=== PATIENT | female | born 1970 | race Asian ===

== ENCOUNTER 2018-10-24 06:35 | Emergency (ER) | payer OTHER ==
[2018-10-24] MEDS ORDERED: KETOROLAC 60 MG/2 ML VIAL IM STA (07:42)
[2018-10-24] MEDS ORDERED: DEXAMETHASONE 10 MG/ML VIAL PO STA (07:42)
--- NOTE | 2018-10-24 08:06 | ED Physician Documentation ---
PD HPI BACK PAIN - Stated complaint Stated Complaint: COUGH/BACK PAIN - Chief complaint Chief Complaint: Resp - History obtained from History obtained from: Patient, Family () - History of Present Illness Timing - onset: Last night Timing - details: Still present Location: Lower Quality: Pain Worsened by: Movement Contributing factors: Other (cough) Similar symptoms before: No diagnosis (History of recurrent low back pain, but not this bad before.) - Treatment prior to arrival Treatment prior to arrival: Naprosyn last night. - Additional information Additional information: The patient is a 48-year-old female who presents with low back pain that started last night when sitting up in bed coughing. It was severe initially, and continues this morning. She denies associated fever, urinary incontinence, numbness or weakness. She has had cough for nearly a week, with associated sore throat. She denies sputum production or shortness of breath. She denies fever. She took Naprosyn last night with temporary improvement of her symptoms. She has a past history of low back pain associated with exercise. It is never been this bad before. Review of Systems Constitutional: denies: Fever Nose: reports: Congestion Throat: reports: Sore throat Cardiac: denies: Chest pain / pressure Respiratory: reports: Cough. denies: Dyspnea GI: denies: Abdominal Pain, Nausea, Vomiting : denies: Dysuria, Incontinent Skin: denies: Rash Musculoskeletal: reports: Back pain. 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 - Past Surgical History Past Surgical History: No - Present Medications Home Medications: Ambulatory Orders Medication Instructions Recorded Confirmed Benzonatate [Tessalon Perle] 100 - 200 mg PO TID PRN #30 capsule 10/24/18 Hydrocodone/Acetaminophen 1 - 2 each PO Q6H PRN #14 tablet 10/24/18 [Hydrocodon-Acetaminophen 5-325] - Allergies Allergies/Adverse Reactions: Allergies Allergy/AdvReac Type Severity Reaction Status Date / Time amoxicillin Allergy Hives Verified 10/24/18 06:46 sulfamethoxazole Allergy Hives Verified 10/24/18 06:46 [From ] trimethoprim [From ] Allergy Hives Verified 10/24/18 06:46 - Social History Does the pt smoke?: No Smoking Status: Never smoker Does the pt drink ETOH?: No Does the pt have substance abuse?: No - Immunizations Immunizations are current?: Yes - POLST Patient has POLST: No PD ED PE NORMAL - Vitals Vital signs reviewed: Yes (normal) - General General: Alert and oriented X 3, Well developed/nourished - HEENT HEENT: Atraumatic, Moist mucous membranes, Pharynx benign - Neck Neck: Supple, no meningeal sign, No adenopathy, No JVD - Cardiac Cardiac: RRR, No murmur - Respiratory Respiratory: No respiratory distress, Clear bilaterally - Abdomen Abdomen: Soft, Non tender - Back Back: No CVA TTP, No spinal TTP, Other (No back tenderness to palpation.) - Derm Derm: No rash - Extremities Extremities: No edema, No calf tenderness / cord, Other (Straight leg raise is positive on the right at 25 degrees elevation.) - Neuro Neuro: Alert and oriented X 3, No motor deficit, No sensory deficit, Other (Deep tendon reflexes are 2+ and equal bilaterally at the patellar and Achilles tendons.) Results - Vitals Vitals: Oxygen O2 Source Room air PD MEDICAL DECISION MAKING - ED course Complexity details: reviewed old records, reviewed results, re-evaluated patient, considered differential, d/w patient ED course: The patient's presentation is significant for acute exacerbation of recurrent low back pain, with upper respiratory symptoms are most consistent with viral bronchitis. Her pain is likely due to lumbar strain, but the possibility of disc herniation remains a potential cause. Her presentation does not suggest epidural abscess, cauda equina syndrome, or spinal stenosis. Treatment in the emergency department included administration of ketorolac 60 mg IM and dexamethasone 10 mg orally. She reports slight improvement of her symptoms after the above treatment. She is being discharged with prescription for Tessalon to help with her,, and Vicodin, 14 tablets, to help ease her pain. I discussed with her and her the expected course of illness, symptomatic treatment and outpatient follow-up, as well as potentially worrisome signs or symptoms that should prompt reevaluation in the emergency department. Departure - Departure Disposition: 01 Home, Self Care Clinical Impression: Viral bronchitis Low back pain Qualifiers: Chronicity: acute Back pain laterality: right Sciatica presence: without sciatica Qualified Code(s): M54.5 - Low back pain Condition: Stable Instructions: ED Low Back Pain Injury, ED Upper Resp Infec No Abx Tx Follow-Up: PINKY AVILA [Primary Care Provider] - Prescriptions: Benzonatate [Tessalon Perle] 100 - 200 mg PO TID PRN #30 capsule PRN Reason: Cough Hydrocodone/Acetaminophen [Hydrocodon-Acetaminophen 5-325] 1 - 2 each PO Q6H PRN #14 tablet PRN Reason: pain Comments: Apply ice pack to your lower back intermittently for the next 3 days. Continue to use Naprosyn twice daily for its anti-inflammatory effect. You can use Vicodin as prescribed if needed for pain. You can use Tessalon as prescribed if needed for cough. Let pain be your guide to activity level. Follow-up with your primary physician within 2 weeks. Call to schedule an appointment. Return to the emergency department if you develop increasing back pain, urinary incontinence, numbness or weakness, or otherwise worsening symptoms. Discharge Date/Time: 10/24/18 08:36
[2018-10-24 08:35] VITALS: BP 120/75
== END 2018-10-24 08:36 | disposition home or self-care (01) ==
LOC: ED 06:35
DX: J20.8 Acute bronchitis due to other specified organisms (principal); M54.5 Low back pain
CPT/HCPCS: 96372; 99283

== ENCOUNTER 2020-01-02 09:39 | Outpatient (CLI) | payer OTHER ==
[2020-01-02 12:53] LABS: BASOPHILS # (AUTO) 0.1 10^3/uL (0.0-0.1); EOSINOPHILS # (AUTO) 0.2 10^3/uL (0.0-0.7); EOSINOPHILS % (AUTO) 3.1 %; HGB - HEMOGLOBIN 13.4 g/dL (12.0-16.0); MEAN CORPUSCULAR HGB CONC 33.5 g/dL (32.0-36.0); MEAN CORPUSCULAR VOLUME 92.6 fL (81.0-99.0); MEAN PLATELET VOLUME 9.5 fL (7.9-10.8); MONOCYTES # (AUTO) 0.6 10^3/uL (0.0-1.0); NEUTROPHILS % (AUTO) 57.6 %; PLT - PLATELET COUNT 322 10^3/uL (130-450); RED BLOOD COUNT 4.32 10^6/uL (4.20-5.40); RED CELL DISTRIBUTION WIDTH 12.6 % (12.0-15.0)
== END 2020-01-02 09:40 | disposition home or self-care (01) ==
LOC: LAB 09:39
PROVIDERS: ATTEND Obstetrics & Gynecology
DX: Z01.812 Encounter for preprocedural laboratory examination (principal); D25.2 Subserosal leiomyoma of uterus; N84.1 Polyp of cervix uteri; N93.9 Abnormal uterine and vaginal bleeding, unspecified
CPT/HCPCS: 85025; 86850; 86900; 86901

== ENCOUNTER 2020-01-04 06:35 | Day surgery (SDC) | payer OTHER ==
[2020-01-04] MEDS ORDERED: ePHEDrine 50 MG/ML VIAL IVP ONE (06:36)
[2020-01-04] MEDS ORDERED: LIDOCAINE-MPF 2% 5 ML VIAL IM ONE (06:36)
[2020-01-04] MEDS ORDERED: DEXAMETHASONE 4 MG/ML VIAL IVP ONE (06:36)
[2020-01-04] MEDS ORDERED: ONDANSETRON 4 MG/2 ML VIAL IVP ONE (06:36)
[2020-01-04] MEDS ORDERED: PROPOFOL 200 MG/20 ML VIAL IVP ONE (06:36)
[2020-01-04] MEDS ORDERED: fentaNYL 100 MCG/2 ML VIAL IVP ONE (06:36)
[2020-01-04 06:44] LABS: HCG UR QUAL NEGATIVE
--- NOTE | 2020-01-04 06:50 | ANESTHESIA ---
Pre-Anesthesia VS, & Labs - Diagnosis abnormal uterine bleeding, fibroid - Procedure hysterscopic Myosure, IUD removal Vital Signs: Temp Pulse Resp BP Pulse Ox 36.8 C 64 18 131/99 H 100 01/04/20 06:30 01/04/20 06:30 01/04/20 06:30 01/04/20 06:30 01/04/20 06:30 Height 5 ft 1 in Weight (kg) 74.3 kg Body Mass Index 30.2 - Is Patient ?: No - Lab Results Lab results reviewed: Yes Home Medications and Allergies Home Medications: Ambulatory Orders Acetaminophen [Tylenol] 650 mg PO Q6H PRN 12/30/19 Biotin 5 mg PO 12/30/19 Multivitamin 1 each PO 12/30/19 Acetaminophen [Tylenol] 650 mg PO Q6H PRN 12/30/19 Biotin 5 mg PO 12/30/19 Lactobacillus Acidophilus [Probiotic Acidophilus] 1.5 mg PO 12/30/19 Levonorgestrel 20 Mcg/24H [Mirena] 1 each IY 12/30/19 Multivitamin 1 each PO 12/30/19 Allergies/Adverse Reactions: Allergies Allergy/AdvReac Type Severity Reaction Status Date / Time amoxicillin Allergy Hives Verified 12/30/19 14:50 latex Allergy Unknown Verified 12/30/19 14:50 sulfamethoxazole Allergy Hives Verified 12/30/19 14:50 [From ] trimethoprim [From ] Allergy Hives Verified 12/30/19 14:50 Anes History & Medical History - Anesthetic History Anesthesia Complications: reports: No previous complications Family history of Anesthesia Complications: Denies Family history of Malignant Hyperthermia: Denies - Medical History Cardiovascular: reports: None Pulmonary: reports: None Gastrointestinal: reports: None Urinary: reports: Other Musculoskeletal: reports: None Endocrine/Autoimmune: reports: None Skin: reports: None Smoking Status: Never smoker Plan Anesthesia Type: General Consent for Procedure(s) Verified and Reviewed: Yes Code Status: Attempt Resuscitation
[2020-01-04] MEDS ORDERED: LACTATED RINGERS 1,000 ML IV ONE ×2 (06:57→08:18)
--- NOTE | 2020-01-04 07:03 | ANESTHESIA ---
Pre-Anesthesia VS, & Labs - Diagnosis uterine fibroids,polyps - Procedure myosure, hysteroscopy Vital Signs: Temp Pulse Resp BP Pulse Ox 36.8 C 64 18 130/78 100 01/04/20 06:30 01/04/20 06:30 01/04/20 06:30 01/04/20 06:30 01/04/20 06:30 Height 5 ft 1 in Weight (kg) 74.3 kg Body Mass Index 30.2 - Is Patient ?: No Home Medications and Allergies Home Medications: Ambulatory Orders Acetaminophen [Tylenol] 650 mg PO Q6H PRN 12/30/19 Biotin 5 mg PO 12/30/19 Multivitamin 1 each PO 12/30/19 Acetaminophen [Tylenol] 650 mg PO Q6H PRN 12/30/19 Biotin 5 mg PO 12/30/19 Multivitamin 1 each PO 12/30/19 Allergies/Adverse Reactions: Allergies Allergy/AdvReac Type Severity Reaction Status Date / Time amoxicillin Allergy Hives Verified 12/30/19 14:50 latex Allergy Unknown Verified 12/30/19 14:50 sulfamethoxazole Allergy Hives Verified 12/30/19 14:50 [From ] trimethoprim [From ] Allergy Hives Verified 12/30/19 14:50 Anes History & Medical History - Anesthetic History Anesthesia Complications: reports: No previous complications, Other-see comment ("when they took off my wisdo teeth, they had a hard time waking me up and that was in 1986") Family history of Anesthesia Complications: Denies Family history of Malignant Hyperthermia: Denies - Medical History Cardiovascular: reports: None Pulmonary: reports: None Gastrointestinal: reports: None Urinary: reports: None, Other Neuro: reports: None Musculoskeletal: reports: None Endocrine/Autoimmune: reports: None Blood Disorders: reports: None Skin: reports: None Smoking Status: Never smoker Psychosocial: reports: No issues indicated Exam General: Alert, Oriented x3, Cooperative, No acute distress Dental: WNL Mouth Openin Fingerbreadth Neck Mobility: Normal Mallampati classification: II Thyromental Distance: 4-6 cm Respiratory: Lungs clear, Normal breath sounds, No respiratory distress, No accessory muscle use Cardiovascular: Regular rate, Normal S1, Normal S2, No murmurs Abdomen: Normal bowel sounds, Soft, No tenderness, No hepatospenomegaly, No masses Extremities: No clubbing, No cyanosis, No edema, Normal pulses, No tenderness/swelling Neurological: Normal gait, Normal speech, Strength at 5/5 X4 ext, Normal tone, S ensation intact, Cranial nerves 3-12 NL, Reflexes 2+ Mental/Cognitive Status: Alert/Oriented X3, Normal for patient Cognitive Status: Within normal limits Plan Anesthesia Type: General Consent for Procedure(s) Verified and Reviewed: Yes Code Status: Attempt Resuscitation ASA classification: 2-Mild systemic disease Is this case an emergency?: No
[2020-01-04] MEDS ORDERED: LIDOCAINE 1% 50 ML MDV ONE (07:11)
[2020-01-04] MEDS ORDERED: SILVER NITRATE APPLICATOR TOP ONE ×2 (07:11→07:13)
[2020-01-04] MEDS ORDERED: LIDOCAINE 1% 50 ML MDV SUBQ ONE (07:12)
[2020-01-04] MEDS ORDERED: LEVONORGESTREL 20 MCG/24H IUD IY ONE ×2 (07:41→08:04)
[2020-01-04] MEDS ORDERED: ONDANSETRON 4 MG/2 ML VIAL IVP PRN (08:28)
[2020-01-04] MEDS ORDERED: oxyCODONE 5 MG TABLET PO PRN (08:28)
--- NOTE | 2020-01-04 08:32 | OPERATIVE REPORT ---
Operative Report - General Procedure Date: 01/04/20 Planned Procedure: diagnostic hysteroscopy, uterine polypectomy and/or myomectomy, dilation and curettage, Mirena IUD removal and insertion Pre-Op Diagnosis: abnormal uterine bleeding, uterine polyp/fibroid Procedure Performed: operative hysteroscopy with IUD retrieval and polypectomy, dilation and curettage, Mirena insertion Post Op Diagnosis: same as above - Procedure Note Primary Surgeon: Emilia Kang Anesthesia Provider: Dr. Cao Anesthesia Technique: General LMA Pathology: 1. uterine polyp 2. endometrial curettings IV Fluids (mL): 800 Estimated Blood Loss (mL): 10 Urine Output (mL): 250 Indications: abnormal uterine bleeding, insufficient EMBx sample in clinic Findings: sharply anteverted uterus, minimal mobility. Small broad-based polyp on posterior wall of endometrial cavity. Bilateral normal ostia. Intrauterine device removed and replaced. Complications: None - Other Other Information/Narrative: Procedure: After informed consent was assured, the patient was taken to the operating room where anesthesia was induced. Pt was placed in high dorsal lithotomy using yellow fin stirrups. An exam under anesthesia was performed which revealed a small sharply anteverted uterus, minimal mobility. The patient was prepped and draped in the usual sterile fashion. Hysteroscopy equipment was set up and white balanced. A surgical timeout was performed. A speculum was inserted into the vagina, and a tenaculum was placed on the anterior lip of the cervix. Hanks dilators were used to dilate the cervix up to 15 togolese. Yayo stones were passed through the os to attempt to grasp the IUD but this was unsuccessful. The hysteroscope light was turned on and fluids were run through. The hysteroscope was passed through the cervix into the endometrial cavity, which was gently distended with fluid. The IUD was visuali zed, strings were grasped with hysteroscopic graspers, and the IUD was removed intact. Bilateral ostia were visualized and appeared unremarkable. A single small polyp was noted on the posterior surface of the endometrial cavity. The Myosure-Lite operative morcellator was passed through the operative sheath into the cavity and used to morcellate the polyp under suction. The cavity appeared smooth and regular at the conclusion, with normal bilateral ostia. The hysteroscope was withdrawn. A curette was introduced to the fundus and withdrawn along all surfaces of the endometrium, returning a sample of curettings. A Mirena IUD was inserted to the fundus at 8 cm; the pipelle was slightly withdrawn and the arms were deployed, then re-advanced to the fundus. The pipelle was withdrawn and the strings were trimmed to 4 cm. The tenaculum was removed from the cervix with good hemostasis observed. All instruments were removed from the vagina, and a repeat bimanual exam revealed a small firm uterus and no instruments in the vaginal vault. The pt was taken to PACU in stable condition.
[2020-01-04 09:10] VITALS: BP 113/72
== END 2020-01-04 06:36 | disposition home or self-care (01) ==
LOC: SDS 06:35
PROVIDERS: ATTEND Obstetrics & Gynecology
PROC: 0UH97HZ Insertion of Contraceptive Device into Uterus, Via Natural or Artificial Opening (ICD-10-PCS; 2020-01-04)
PROC: 0UB98ZZ Excision of Uterus, Via Natural or Artificial Opening Endoscopic (ICD-10-PCS; principal; 2020-01-04 07:30)
PROC: 0UDB7ZZ Extraction of Endometrium, Via Natural or Artificial Opening (ICD-10-PCS; 2020-01-04 07:30)
DX: N84.0 Polyp of corpus uteri (principal); N93.9 Abnormal uterine and vaginal bleeding, unspecified; D25.9 Leiomyoma of uterus, unspecified; Z97.5 Presence of (intrauterine) contraceptive device; R73.03 Prediabetes
CPT/HCPCS: 81025